=== PATIENT | female | born 1980 | race Caucasian/White ===

== ENCOUNTER 2017-01-07 15:55 | Emergency (ER) | payer OTHER ==
[~2017-01-07] VITALS: Ht 175.3 cm; Wt 66.0 kg
[~2017-01-07 15:55] MED LIST: MOTR200T4 PO; PROM25TA5 PO
[2017-01-07 18:15] VITALS: BP 108/69; PULSE 80; RESP 20; TEMP 98.1; O2SAT 100
[2017-01-07] MEDS ORDERED: PREN29TA PO (18:20)
[2017-01-07 19:27] VITALS: BP 101/60; PULSE 84; RESP 18; O2SAT 100
[2017-01-07] MEDS ORDERED: ACETAMINOPHEN 325 MG TAB PO ONE (19:30)
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
[2017-01-07 20:46] LABS: BILIRUBIN, URINE NEG (NEG); BLOOD, URINE NEG (NEG); GLUCOSE,URINE NEG (NEG); KETONE, URINE 40 mg/dL (NEG); NITRITE,URINE NEG (NEG); PH, URINE 7.5 (5.0-8.5); SQUAMOUS EPITHELIAL CELL URINE 4 /hpf (0-5); URINE COLOR LIGHT-YELLOW (YELLW/STRAW); URINE LEUKOCYTE ESTERASE NEG (NEG)
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
[2017-01-07 23:06] LABS: AUTOMATED NEUTROPHIL # 7.1 TH/MM3 (1.8-7.7); BASOPHIL % 0.4 % (0.0-2.0); EOSINOPHIL # 0.2 TH/MM3 (0-0.4); EOSINOPHIL % 1.8 % (0.0-4.0); HEMATOCRIT 30.5 % (35.0-46.0); HEMOGLOBIN 10.4 GM/DL (11.6-15.3); LYMPH % 26.3 % (9.0-44.0); LYMPHOCYTE # 2.7 TH/MM3 (1.0-4.8); MEAN CORPUSCULAR HEMOGLOBIN 31.5 PG (27.0-34.0); MEAN CORPUSCULAR HGB CONC 34.2 % (32.0-36.0); MEAN PLATELET VOLUME 9.1 FL (7.0-11.0); MONOCYTE # 0.4 TH/MM3 (0-0.9); NEUT % 67.5 % (16.0-70.0); PLATELET COUNT 246 TH/MM3 (150-450); RED BLOOD COUNT 3.31 MIL/MM3 (4.00-5.30); RED CELL DISTRIBUTION WIDTH 13.7 % (11.6-17.2); WHITE BLOOD COUNT 10.4 TH/MM3 (4.0-11.0)
[2017-01-08 12:54] LABS: HEPATITIS A AB IGM NEGATIVE (NEGATIVE); HEPATITIS B SURFACE ANTIGEN NEGATIVE (NEGATIVE); HEPATITIS C AB IgG NEGATIVE (NEGATIVE)
== END 2017-01-07 22:12 | disposition home or self-care (01) ==
LOC: NEPD 15:55 → HOBED 22:12
DX: O26.892 Other specified pregnancy related conditions, second trimester (principal); S16.1XXA Strain of muscle, fascia and tendon at neck level, initial encounter; R51 Headache; V49.49XA Driver injured in collision with other motor vehicles in traffic accident, initial encounter; Z72.0 Tobacco use; F12.90 Cannabis use, unspecified, uncomplicated
CPT/HCPCS: 36415; 80074; 80307; 81001; 85025; 86592; 86703; 86762; 86850; 86900; 86901; 99283

== ENCOUNTER → 2017-03-21 | Outpatient (CLI) | payer OTHER ==
[~2017-03-21] MED LIST changes: +FERRTAB2 PO; -MOTR200T4 PO; +PREN29TA PO; -PROM25TA5 PO
== END ==
LOC: HPND 14:01
PROVIDERS: ATTEND Obstetrics & Gynecology
DX: O09.523 Supervision of elderly multigravida, third trimester (principal); O09.33 Supervision of pregnancy with insufficient antenatal care, third trimester; O99.333 Smoking (tobacco) complicating pregnancy, third trimester
CPT/HCPCS: 76811

== ENCOUNTER 2017-05-16 01:56 | Inpatient (IN) | payer OTHER ==
[2017-05-16] VITALS (8 sets, daily range): BP systolic 107–128; BP diastolic 68–91; PULSE 77–211; RESP 16–18; TEMP 98.3
[2017-05-16] MEDS ORDERED: LACTATED RINGER'S 1000 ML INJ 1,000 ML IV PRN (02:14)
[2017-05-16] MEDS ORDERED: CITRIC ACID-SODIUM CITRATE LIQ 30 ML UDC PO SCH (02:15)
[2017-05-16] MEDS ORDERED: MINERAL OIL 10 ML VIAL TOPICAL PRN (02:15)
[2017-05-16] MEDS ORDERED: OXYTOCIN 30 UNITS-500ML PREMIX 500 ML IV ONE (02:15)
[2017-05-16] MEDS ORDERED: LIDOCAINE HCL 1% 50 ML VIAL INFIL PRN (02:15)
[2017-05-16] MEDS ORDERED: LIDOCAINE HCL 1% 50 ML VIAL I-DERMAL PRN (02:15)
[2017-05-16] MEDS ORDERED: SODIUM CHLORID 0.9% 500 ML INJ 500 ML IV PRN (02:15)
[2017-05-16] MEDS ORDERED: SODIUM CHLOR 0.9% 1000 ML INJ 1,000 ML IV PRN (02:34)
--- NOTE | 2017-05-16 02:38 | PD ---
HPI Chief Complaint contractions, pelvic pressure Date Seen: May 16, 2017 Time Seen: 02:31 Travel History International Travel<30 Days: No Contact w/Intl Traveler<30Days: No Known Affected Area: No History of Present Illness HPI pt. is a at 37 + weeks presnets w/ c/o ctxs. pt. states ctxs began earlier in evening. ctxs have increased in freq and intesity since. +FM, no lof/vb. pt. cervix checked by nursing at time of presentation and found to be 7 -8/100/0 Weeks Gestation: 37 Para: 0 : 1 History Past Medical History Medical History: Denies Significant Hx Past Surgical History Surgical History: No Previous Surgery Family History Family History: Negative Social History Alcohol Use: No Tobacco Use: No Substance Abuse: No Allergies-Medications (Allergen,Severity, Reaction): Coded Allergies: No Known Allergies (Verified Adverse Reaction, Unknown, 02/20/17) Home Meds Active Scripts Multi-Vit/Iron-Folic [id number] C (Ferralet) 90-1-0.012-120 mg Tab, 1 CAPLET PO DAILY for 30 Days, #30 CAP 3 Refills Prov:MorenoKelsy CNM FOAMING MACHINE OPERATOR 03/06/17 Reported Medications Vit-Iron Carbonyl ( Plus Iron 29-1 mg) 29 Mg Iron-1 Mg Tab, 1 TAB PO DAILY for Nutritional Supplement, #30 TAB 0 Refills 01/07/17 Review of Systems Except as stated in HPI: all other systems reviewed are Neg Physical Exam Narrative GENERAL: Well-nourished, well-developed patient. SKIN: Warm and dry. HEAD: Normocephalic and atraumatic. EYES: No scleral icterus. No injection or drainage. ENT: No nasal drainage noted. Mucous membranes pink. Airway patent. NECK: Supple, trachea midline. No JVD. CARDIOVASCULAR: Regular rate and rhythm without murmurs, gallops, or rubs. RESPIRATORY: Breath sounds equal bilaterally. No accessory muscle use. ABDOMEN/GI: Abdomen soft, non-tender, bowel sounds present, no rebound, no guarding Gravid GENITOURINARY: External Genitalia: intact and normal in appearance Dilatation: 7-8 Effacement: 100 Station: 0 Presentation: cephalic Membranes: AROM, thin meconium Uterine Contractions: q 2 min FHT's: Category: 2 Baseline: 100's Reactive: - Variability: minimal Decels:none EXTREMITIES: No cyanosis or edema. BACK: Nontender without obvious deformity. No CVA tenderness. NEUROLOGICAL: Awake and alert. Motor and sensory grossly within normal limits. Five out of 5 muscle strength in all muscle groups. Normal speech. Data Data Vital Signs Reviewed: Yes Orders Orders Ob (2e) Additional Admit Info (05/16/17 02:06) Admit To Inpatient (05/16/17 ) Code Status (05/16/17 02:14) Vital Signs (Adult) .Per protocol (05/16/17 02:14) Heart (05/16/17 02:14) Amnioinfusion (05/16/17 02:14) Urinary Catheter Management .ONCE (05/16/17 02:14) Diet Npo (05/16/17 Breakfast) Lactated Ringer's 1000 Ml Inj (Lr 1000 M (05/16/17 02:14) Lactated Ringer's 1000 Ml Inj (Lr 1000 M (05/16/17 02:14) Sodium Chlorid 0.9% 500 Ml Inj (Ns 500 M (05/16/17 02:15) Sodium Chlor 0.9% 1000 Ml Inj (Ns 1000 M (05/16/17 02:34) Lidocaine 1% Inj (50 Ml) (Xylocaine 1% I (05/16/17 02:15) Citric Acid-Sodium Citrate Liq (Bicitra (05/16/17 02:15) Fentanyl Inj (Fentanyl Inj) (05/16/17 02:15) Fentanyl Inj (Fentanyl Inj) (05/16/17 02:15) Complete Blood Count With Diff (05/16/17 02:14) Hold Clot (05/16/17 02:14) Abo/Rh Blood Type (05/16/17 02:14) Urinalysis - C+S If Indicated (05/16/17 02:14) Drug Screen, Random Urine (05/16/17 02:14) Ob/Psych Drug Screen, Urine (05/16/17 02:14) Resp Oxygen Non Rebreathe Mask (05/16/17 ) ^ Epidural / Intrathecal Infus (05/16/17 02:14) Oxytocin 30 Units-500ml Premix (Pitocin (05/16/17 02:15) Lidocaine 1% Inj (50 Ml) (Xylocaine 1% I (05/16/17 02:15) Light Mineral Oil (Muri-Lube Oil) (05/16/17 02:15) Inpatient Certification (05/16/17 ) Group B Strep: Positive MDM Medical Record Reviewed: Yes Plan pt at term in active labor. will give 2 gm ampicillin for gbs +, iv analgesics expect . Jl Mohr Jr., MD May 16, 2017 02:38
[2017-05-16 02:39] LABS: AUTOMATED NEUTROPHIL # 13.7 TH/MM3 (1.8-7.7); BASOPHIL # 0.1 TH/MM3 (0-0.2); BASOPHIL % 0.3 % (0.0-2.0); EOSINOPHIL # 0.1 TH/MM3 (0-0.4); EOSINOPHIL % 0.5 % (0.0-4.0); HEMATOCRIT 33.9 % (35.0-46.0); HEMOGLOBIN 11.9 GM/DL (11.6-15.3); LYMPH % 19.5 % (9.0-44.0); LYMPHOCYTE # 3.6 TH/MM3 (1.0-4.8); MEAN CELL VOLUME 88.9 FL (80.0-100.0); MEAN CORPUSCULAR HEMOGLOBIN 31.2 PG (27.0-34.0); MEAN CORPUSCULAR HGB CONC 35.1 % (32.0-36.0); MEAN PLATELET VOLUME 9.7 FL (7.0-11.0); MONO % 5.1 % (0.0-8.0); MONOCYTE # 0.9 TH/MM3 (0-0.9); NEUT % 74.6 % (16.0-70.0); PLATELET COUNT 227 TH/MM3 (150-450); RED BLOOD COUNT 3.81 MIL/MM3 (4.00-5.30); RED CELL DISTRIBUTION WIDTH 12.7 % (11.6-17.2); WHITE BLOOD COUNT 18.4 TH/MM3 (4.0-11.0)
[2017-05-16] MEDS ORDERED: LIDOCAINE HCL 1% 20 ML VIAL ONE (02:39)
[2017-05-16 02:53] LABS: BACTERIA, URINE OCC /hpf; BILIRUBIN, URINE NEG (NEG); BLOOD, URINE MOD (NEG); GLUCOSE,URINE NEG (NEG); KETONE, URINE TRACE mg/dL (NEG); MUCUS URINE FEW /lpf (OCC); NITRITE,URINE NEG (NEG); SQUAMOUS EPITHELIAL CELL URINE 22 /hpf (0-5); TRANSITIONAL EPI CELLS, URINE <1 /hpf; URINE COLOR YELLOW (YELLW/STRAW); URINE LEUKOCYTE ESTERASE LARGE (NEG)
--- NOTE | 2017-05-16 02:54 | HHI.HP ---
History & Physical H&P HPI Chief Complaint contractions, pelvic pressure Date Seen: May 16, 2017 Time Seen: 02:31 Travel History International Travel<30 Days: No Contact w/Intl Traveler<30Days: No Known Affected Area: No History of Present Illness HPI pt. is a at 37 + weeks presnets w/ c/o ctxs. pt. states ctxs began earlier in evening. ctxs have increased in freq and intesity since. +FM, no lof/vb. pt. cervix checked by nursing at time of presentation and found to be 7 -8/100/0 Weeks Gestation: 37 Para: 0 : 1 History (Limited) History Past Medical History Medical History: Denies Significant Hx Past Surgical History Surgical History: No Previous Surgery Family History Family History: Negative Social History Alcohol Use: No Tobacco Use: No Substance Abuse: No Allergies-Medications Allergies-Medications (Allergen,Severity, Reaction): Coded Allergies: No Known Allergies (Verified Adverse Reaction, Unknown, 02/20/17) Home Meds Active Scripts Multi-Vit/Iron-Folic [id number]-Fbc C (Ferralet) 90-1-0.012-120 mg Tab, 1 CAPLET PO DAILY for 30 Days, #30 CAP 3 Refills Prov:Kelsy Moreno CNM LABORER CARPENTRY DOCK 03/06/17 Reported Medications Vit-Iron Carbonyl ( Plus Iron 29-1 mg) 29 Mg Iron-1 Mg Tab, 1 TAB PO DAILY for Nutritional Supplement, #30 TAB 0 Refills 01/07/17 ROS Review of Systems Except as stated in HPI: all other systems reviewed are Neg Physical Exam Physical Exam Narrative GENERAL: Well-nourished, well-developed patient. SKIN: Warm and dry. HEAD: Normocephalic and atraumatic. EYES: No scleral icterus. No injection or drainage. ENT: No nasal drainage noted. Mucous membranes pink. Airway patent. NECK: Supple, trachea midline. No JVD. CARDIOVASCULAR: Regular rate and rhythm without murmurs, gallops, or rubs. RESPIRATORY: Breath sounds equal bilaterally. No accessory muscle use. ABDOMEN/GI: Abdomen soft, non-tender, bowel sounds present, no rebound, no guarding Gravid GENITOURINARY: External Genitalia: intact and normal in appearance Dilatation: 7-8 Effacement: 100 Station: 0 Presentation: cephalic Membranes: AROM, thin meconium Uterine Contractions: q 2 min FHT's: Category: 2 Baseline: 100's Reactive: - Variability: minimal Decels:none EXTREMITIES: No cyanosis or edema. BACK: Nontender without obvious deformity. No CVA tenderness. NEUROLOGICAL: Awake and alert. Motor and sensory grossly within normal limits. Five out of 5 muscle strength in all muscle groups. Normal speech. Data Data Data Vital Signs Reviewed: Yes Orders Orders Ob (2e) Additional Admit Info (05/16/17 02:06) Admit To Inpatient (05/16/17 ) Code Status (05/16/17 02:14) Vital Signs (Adult) .Per protocol (05/16/17 02:14) Heart (05/16/17 02:14) Amnioinfusion (05/16/17 02:14) Urinary Catheter Management .ONCE (05/16/17 02:14) Diet Npo (05/16/17 Breakfast) Lactated Ringer's 1000 Ml Inj (Lr 1000 M (05/16/17 02:14) Lactated Ringer's 1000 Ml Inj (Lr 1000 M (05/16/17 02:14) Sodium Chlorid 0.9% 500 Ml Inj (Ns 500 M (05/16/17 02:15) Sodium Chlor 0.9% 1000 Ml Inj (Ns 1000 M (05/16/17 02:34) Lidocaine 1% Inj (50 Ml) (Xylocaine 1% I (05/16/17 02:15) Citric Acid-Sodium Citrate Liq (Bicitra (05/16/17 02:15) Fentanyl Inj (Fentanyl Inj) (05/16/17 02:15) Fentanyl Inj (Fentanyl Inj) (05/16/17 02:15) Complete Blood Count With Diff (05/16/17 02:14) Hold Clot (05/16/17 02:14) Abo/Rh Blood Type (05/16/17 02:14) Urinalysis - C+S If Indicated (05/16/17 02:14) Drug Screen, Random Urine (05/16/17 02:14) Ob/Psych Drug Screen, Urine (05/16/17 02:14) Resp Oxygen Non Rebreathe Mask (05/16/17 ) ^ Epidural / Intrathecal Infus (05/16/17 02:14) Oxytocin 30 Units-500ml Premix (Pitocin (05/16/17 02:15) Lidocaine 1% Inj (50 Ml) (Xylocaine 1% I (05/16/17 02:15) Light Mineral Oil (Muri-Lube Oil) (05/16/17 02:15) Inpatient Certification (05/16/17 ) Group B Strep: Positive MDM MDM Medical Record Reviewed: Yes Plan pt at term in active labor. will give 2 gm ampicillin for gbs +, iv analgesics expect . Jl Mohr Jr., MD May 16, 2017 02:54
[2017-05-16] MEDS ORDERED: DOCUSATE SODIUM 50 MG/SENNA 8.6 MG TAB PO PRN (04:45)
[2017-05-16] MEDS ORDERED: BENZOCAINE 20% TOPICAL SPRAY 60 ML CAN TOPICAL PRN (04:45)
[2017-05-16] MEDS ORDERED: ACETAMINOPHEN 325 MG TAB PO PRN (04:45)
[2017-05-16] MEDS ORDERED: ZOLPIDEM TARTRATE 5 MG TAB PO PRN (04:45)
[2017-05-16] MEDS ORDERED: SODIUM CHLORIDE 0.9% FLUSH 10 ML FLUSH IV FLUSH PRN (04:45)
[2017-05-16] MEDS ORDERED: OXYTOCIN 30 UNITS-500ML PREMIX 500 ML IV SCH (04:45)
[2017-05-16] MEDS ORDERED: WITCH HAZEL 50%/GLYCERIN 12.5% 40 PAD JAR TOPICAL PRN (04:45)
[2017-05-16] MEDS ORDERED: ONDANSETRON ODT 4 MG TAB PO PRN (04:45)
[2017-05-16] MEDS ORDERED: ALUMINUM/MAGNESIUM/SIMETH 30 ML CUP PO PRN (04:45)
--- NOTE | 2017-05-16 04:45 | PD.OB.DELI ---
Weeks gestation: 37 Gest age assessed date: May 16, 2017 Gest age assessed time: 04:43 Pt started active labor?: Yes Artificial rupture of membrane: Yes Anesthesia: None Episiotomy: Midline Vaginal Delivery: Normal Presentation: Occiput anterior Nuchal Cord: None Delayed cord clamping (45 sec): Yes Infant: Male Delivery date: May 16, 2017 Delivery time: 03:27 One Minute : 8 Five Minute : 9 Weight: 2915 Placenta: Spontaneous delivery Laceration: Episiotomy, 2 deg Repair: Vicryl running Estimated blood loss: 400 Jl Mohr Jr., MD May 16, 2017 04:45
[2017-05-16] MEDS: IBUPROFEN 800 MG TAB PO PRN ×3 (06:24→22:37)
[2017-05-16] MEDS ORDERED: SODIUM CHLORIDE 0.9% FLUSH 10 ML FLUSH IV FLUSH SCH (09:00)
[2017-05-16] MEDS ORDERED: DIPHTH/TETANUS/ACEL PERTUSSIS (BOOSTER) 0.5 ML VIAL/PFS IM ONE (16:00)
[2017-05-16] MEDS ORDERED: MEASLES, MUMPS, RUBELLA VACCINE 0.5 ML VIAL SQ ONE (16:00)
[2017-05-16] MEDS: LACTATED RINGER'S 1000 ML INJ 1,000 ML IV SCH (18:14)
[2017-05-16] MEDS: oxyCODONE/ACETAMINOPHEN 5 MG/325 MG TAB PO PRN ×2 (21:21→22:37)
[2017-05-17] MEDS: LACTATED RINGER'S 1000 ML INJ 1,000 ML IV SCH (02:14)
[2017-05-17 07:50] VITALS: PULSE 78; RESP 18; TEMP 98; O2SAT 100
[2017-05-17] MEDS: IBUPROFEN 800 MG TAB PO PRN ×2 (07:54→13:48)
[2017-05-17] MEDS: oxyCODONE/ACETAMINOPHEN 5 MG/325 MG TAB PO PRN ×2 (07:54→13:49)
--- NOTE | 2017-05-17 08:43 | PD.OB.ANTE ---
Objective Vital Signs Vital Signs Date Time Temp Pulse Resp B/P (MAP) Pulse Ox O2 Delivery O2 Flow Rate FiO2 05/17/17 07:50 98.0 78 18 05/17/17 07:50 100 Lab & Micro Results Date/Time Source Procedure Growth Status 05/16/17 02:36 Urine Clean Catch Urine Culture Pending Received Physical Exam GENERAL: Well-nourished, well-developed patient. CARDIOVASCULAR: Regular rate and rhythm without murmurs, gallops, or rubs. RESPIRATORY: Breath sounds equal bilaterally. No accessory muscle use. ABDOMEN/GI: Abdomen soft, non-tender. Fundus: [-] GENITOURINARY: External Genitalia: intact and normal in appearance Cervix: [-] Dilatation: [-] Effacement: [-] Station: [-] Presentation: [-] Membranes: [-] Uterine Contractions: [-] FHT's: Category: [-] Baseline: [-] Reactive: [-] Variability: [-] Decels: [-] EXTREMITIES: No cyanosis or edema, non-tender, without signs of DVT. Addy Mak MD R1 May 17, 2017 08:43
--- NOTE | 2017-05-17 09:21 | HHI.OB ---
Subjective Post Day: 1 Remarks day #1 AFVSS overnight. Decreased lochia. Denies dysuria. No breast tenderness. She is feeding the baby via bottle. Appetite good. No nausea or vomiting. Positive flatus/bowel movement. Ambulating well. Denies calf pain or shortness of breath. Denies nausea, vomiting, diarrhea, runny nose, myalgias, arthralgias. Otherwise, she is doing well this morning and has no other complaints. Objective Vitals/I&O Vital Signs Date Time Temp Pulse Resp B/P (MAP) Pulse Ox O2 Delivery O2 Flow Rate FiO2 05/17/17 07:50 98.0 78 18 05/17/17 07:50 100 Objective Remarks GENERAL: Well-nourished, well-developed patient. CARDIOVASCULAR: Regular rate and rhythm without murmurs, gallops, or rubs. RESPIRATORY: Breath sounds equal bilaterally. No accessory muscle use. ABDOMEN/GI: Abdomen soft, non-tender. Fundus: Firm, non-tender at umbilicus. GENITOURINARY: Light to moderate bleeding. EXTREMITIES: No cyanosis or edema, non-tender, without signs of DVT. Medications and IVs Current Medications Medications (Trade) Dose Ordered Sig/Carrol Route Start Time Stop Time Status Last Admin Lactated Ringer's 1,000 ml @ 125 mls/hr Q8H IV 05/16/17 02:14 Lactated Ringer's 1,000 ml @ 3,000 mls/hr Q20M PRN IV 05/16/17 02:14 Sodium Chloride 500 ml @ 1,000 mls/hr ONCE PRN IV 05/16/17 02:15 Sodium Chloride 1,000 ml @ 100 mls/hr Q10H PRN IV 05/16/17 02:34 (Xylocaine 1% Inj (50 ml)) 0.1 ml UNSCH X1 PRN I-DERMAL 05/16/17 02:15 05/19/17 02:14 (Bicitra Liq) 30 ml PARISH NURSE PO 05/16/17 02:15 05/20/17 02:14 (fentaNYL INJ) 50 mcg Q1H PRN IV PUSH 05/16/17 02:15 (fentaNYL INJ) 100 mcg Q1H PRN IV PUSH 05/16/17 02:15 (Xylocaine 1% Inj (50 ml)) 10 ml UNSCH X1 PRN INFIL 05/16/17 02:15 05/18/17 02:14 (Muri-Lube Oil) 10 ml UNSCH PRN TOPICAL 05/16/17 02:15 (NS Flush) 2 ml BID IV FLUSH 05/16/17 09:00 (NS Flush) 2 ml UNSCH PRN IV FLUSH 05/16/17 04:45 (Tylenol) 650 mg Q4H PRN PO 05/16/17 04:45 05/16/17 14:28 (Motrin) 800 mg Q8H PRN PO 05/16/17 04:45 05/17/17 07:54 (Percocet 5-325 Mg) 1 tab Q4H PRN PO 05/16/17 04:45 05/16/17 22:37 (Percocet 5-325 Mg) 2 tab Q4H PRN PO 05/16/17 04:45 05/17/17 07:54 (Americaine 20% Top Spr) 1 spray Q4H PRN TOPICAL 05/16/17 04:45 05/16/17 21:18 (Tucks Pads) 1 applic QID PRN TOPICAL 05/16/17 04:45 05/16/17 21:18 (Nimo-Colace) 2 tab Q12H PRN PO 05/16/17 04:45 05/16/17 14:28 (Ambien) 5 mg HS PRN PO 05/16/17 04:45 (Mag-Al Plus Susp Liq) 15 ml Q8H PRN PO 05/16/17 04:45 (Zofran Odt) 4 mg Q6H PRN PO 05/16/17 04:45 Assessment/Plan Assessment and Plan 37y/o female who is PPD#1 s/p . -Continue routine care. -Motrin PRN pain. -Encouraged OOB. Advised pelvic rest for 6 wks. -Re: ctrl, she would like to speak with her outpatient OB regarding control. -D/c likely today. LIVIA Mak,Addy Devi MD R1 May 17, 2017 09:21
[2017-05-17] MEDS ORDERED: IBUP1TAB7 PO (09:34)
[2017-05-17] MEDS ORDERED: PERI PO (09:34)
--- NOTE | 2017-05-17 09:35 | HHI.DCPOC ---
Discharge Care Plan Diagnosis: (1) Vaginal delivery Report Symptoms to Your Doctor -Temperature above 100.5 degrees -Redness, of incision or excessive or foul smelling drainage -Unusual pain or calf pain -Increased vaginal bleeding -Painful or difficulty urinating -Feelings of extreme sadness or anxiety after 2 weeks Goals to Promote Your Health * To prevent worsening of your condition and complications * To maintain your health at the optimal level Directions to Meet Your Goals Take your medications as prescribed Follow your dietary instruction Follow activity as directed Ensure plenty of rest for recovery Drink fluids for hydration Keep your appointments as scheduled Take your immunizations and boosters as scheduled If your symptoms worsen call your PCP, if no PCP go to Urgent Care Center or Emergency Room Smoking is Dangerous to Your Health. Avoid second hand smoke Call the 24-hour crisis hotline for domestic abuse at Addy Mak MD R1 May 17, 2017 09:35
== END 2017-05-17 14:27 | disposition home or self-care (01) | DRG 775 ==
LOC: HOBED 01:56 → H2EA 02:07 → H1EA 05:12
PROVIDERS: ADMIT Obstetrics & Gynecology; ATTEND Obstetrics & Gynecology
PROC: 10E0XZZ Delivery of Products of Conception, External Approach (ICD-10-PCS; principal; 2017-05-16)
PROC: 0W8NXZZ Division of Female Perineum, External Approach (ICD-10-PCS; 2017-05-16)
PROC: 10907ZC Drainage of Amniotic Fluid, Therapeutic from Products of Conception, Via Natural or Artificial Opening (ICD-10-PCS; 2017-05-16)
DX: O99.824 Streptococcus B carrier state complicating childbirth (principal); Z37.0 Single live birth; Z3A.37 37 weeks gestation of pregnancy
CPT/HCPCS: 80307; 81001; 85025; 86900; 86901; 87086; 90715

== ENCOUNTER → 2017-06-06 | Outpatient (CLI) | payer OTHER ==
[~2017-06-06] MED LIST changes: +IBUP1TAB7 PO; +PERI PO
--- NOTE | 2017-06-06 11:00 | RADRPT ---
EXAM DATE/TIME: 06/06/2017 10:25 [facility] COMPARISON: No previous studies available for comparison. INDICATIONS : Right leg swelling. MEDICAL HISTORY : . Psoriasis. Migraines. SURGICAL HISTORY : None. ENCOUNTER: Initial ACUITY: 1 month PAIN SCORE: 0/10 LOCATION: Right leg. TECHNIQUE: Venous ultrasound of the leg was performed from the inguinal ligament to the proximal calf. Real-steve e, color Doppler and spectral tracing, compression and augmentation techniques were used. FINDINGS: There is normal compressibility of the deep venous system from the inguinal region to the proximal ca lf. No echogenic clot is seen in the lumen of the common femoral, femoral, popliteal, and posterior tibial veins. There is a normal response of the venous system to proximal and distal augmentation an d respiration. CONCLUSION: Normal examination. Jaren Cano MD on June 06, 2017 at 10:57 Board Certified Radiologist. This report was verified electronically.
== END ==
LOC: HRAD 10:06
PROVIDERS: ATTEND Obstetrics & Gynecology
DX: M79.89 Other specified soft tissue disorders (principal)
CPT/HCPCS: 93971